=== PATIENT | female | born 1990 | race Caucasian/White ===

== ENCOUNTER → 2016-06-06 | Outpatient (CLI) | payer BC, OTHER ==
[2016-06-06 13:33] LABS: ALBUMIN 4.2 g/dL (3.4-5.0); ALBUMIN/GLOBULIN RATIO 1.1 (1.0-1.7); CALCIUM 8.9 mg/dL (8.5-10.1); CREATININE 0.9 mg/dL (0.6-1.0); GFR 75.1; MAGNESIUM 2.1 mg/dL (1.8-2.4); POTASSIUM 3.8 mmol/L (3.5-5.1); TOTAL BILIRUBIN 0.3 mg/dL (0.2-1.0); TOTAL PROTEIN 8.1 g/dL (6.4-8.2)
[2016-06-06 13:58] LABS: BASO % 0 % (0-3); EOS # 0.1 x10^3/uL (0.0-0.7); EOS % 1 % (0-3); HEMATOCRIT 42.6 % (36.0-47.0); HEMOGLOBIN 14.3 g/dL (12.0-15.5); LYMPH # 2.5 x10^3/uL (1.0-4.8); LYMPH % 29 % (24-48); MEAN CORPUSCULAR HEMOGLOBIN 28 pg (25-35); MEAN CORPUSCULAR HGB CONC 34 g/dL (31-37); MEAN CORPUSCULAR VOLUME 83 fL (79-100); MONO # 0.5 x10^3/uL (0.0-1.1); MONO % 6 % (0-9); NEUT # 5.7 x10^3uL (1.8-7.7); NEUT % 64 % (31-73); PLATELET COUNT 245 x10^3/uL (140-400); RED BLOOD COUNT 5.14 x10^6/uL (3.50-5.40); RED CELL DISTRIBUTION WIDTH 13.1 % (11.5-14.5); WHITE BLOOD COUNT 8.9 x10^3/uL (4.0-11.0)
== END | disposition home or self-care (01) ==
LOC: LAB 12:55
PROVIDERS: ATTEND Family Medicine
DX: J40 Bronchitis, not specified as acute or chronic (principal); E04.8 Other specified nontoxic goiter
CPT/HCPCS: 36415; 80053; 83735; 84443; 85027

== ENCOUNTER → 2016-07-02 | Outpatient (CLI) | payer OTHER ==
--- NOTE | 2016-07-02 14:59 | RAD ---
Indication enlarged thyroid. Grayscale imaging targeted to the thyroid was performed. The right lobe of the thyroid measures 4.4 x 1.5 x 1.8 cm and appears normal. No mass is seen. The isthmus appears normal. The left lobe of the thyroid also appears normal and measures approximately 4.6 x 1.3 x 1.5 cm. IMPRESSION: Normal study
== END | disposition home or self-care (01) ==
LOC: US 13:34
PROVIDERS: ATTEND Family Medicine
DX: E04.9 Nontoxic goiter, unspecified (principal)
CPT/HCPCS: 76536

== ENCOUNTER → 2016-09-10 | Outpatient (CLI) | payer OTHER ==
--- NOTE | 2016-09-10 11:16 | RAD ---
Right and left hand radiographs 09/10/2016 at 10:46 AM Indication: Joint pain for more than one week. Comparison: None available Technique: 3 views of the right and 3 views of the left hand are provided. Findings: Right hand: No acute fracture or dislocation. There is no soft tissue swelling. Joint spaces are maintained. Bone mineralization is within normal limits. No osseous erosions are identified. Left hand: There is no acute fracture or dislocation. There is no soft tissue swelling. Joint spaces are maintained. Bone mineralization is within normal limits. No osseous erosions are identified. Impression: 1. No acute fracture or dislocation involving the right hand. 2. No acute fracture or dislocation involving the left hand.
[2016-09-10 11:46] LABS: ALBUMIN 3.9 g/dL (3.4-5.0); CALCIUM 8.9 mg/dL (8.5-10.1); CREATININE 0.8 mg/dL (0.6-1.0); POTASSIUM 4.1 mmol/L (3.5-5.1); TOTAL BILIRUBIN 0.3 mg/dL (0.2-1.0); TOTAL PROTEIN 7.8 g/dL (6.4-8.2)
[2016-09-10 11:47] LABS: BASO % 0 % (0-3); EOS # 0.1 x10^3/uL (0.0-0.7); EOS % 1 % (0-3); HEMATOCRIT 41.1 % (36.0-47.0); LYMPH # 2.3 x10^3/uL (1.0-4.8); LYMPH % 31 % (24-48); MEAN CORPUSCULAR HEMOGLOBIN 28 pg (25-35); MEAN CORPUSCULAR HGB CONC 34 g/dL (31-37); MEAN CORPUSCULAR VOLUME 83 fL (79-100); MONO # 0.5 x10^3/uL (0.0-1.1); MONO % 7 % (0-9); NEUT # 4.6 x10^3uL (1.8-7.7); NEUT % 61 % (31-73); PLATELET COUNT 246 x10^3/uL (140-400); RED BLOOD COUNT 4.98 x10^6/uL (3.50-5.40); RED CELL DISTRIBUTION WIDTH 13.1 % (11.5-14.5); WHITE BLOOD COUNT 7.6 x10^3/uL (4.0-11.0)
[2016-09-10 12:14] LABS: BACTERIA,URINE FEW /HPF (0-FEW); BILIRUBIN,URINE NEG (NEG); CLARITY,URINE HAZY; COLOR,URINE YELLOW; GLUCOSE,URINE NEG (NEG); NITRITE,URINE NEG (NEG); SQUAMOUS EPITHELIAL CELL,UR FEW /LPF; UROBILINOGEN,URINE 0.2 mg/dL (0.2 mg/dL); WBC,URINE OCC /HPF (0-4)
[2016-09-10 12:56] LABS: SEDIMENTATION RATE 24 (0-25)
[2016-09-10 20:12] LABS: RHEUMATOID FACTOR <10.0 IU/mL (0.0-13.9)
== END | disposition home or self-care (01) ==
LOC: DXRAD 10:22
PROVIDERS: ATTEND Family Medicine
DX: M06.4 Inflammatory polyarthropathy (principal); M13.842 Other specified arthritis, left hand; M13.841 Other specified arthritis, right hand
CPT/HCPCS: 36415; 73130; 80053; 81001; 85027; 85651; 86431

== ENCOUNTER 2016-12-17 12:24 | Emergency (ER) | payer OTHER ==
[2016-12-17] MEDS ORDERED: ACET325T9 PO (12:37)
[2016-12-17] MEDS ORDERED: FLUT9.9S NS (12:55)
--- NOTE | 2016-12-17 12:55 | PHYS DOC ---
Past History Past Medical History: Migraines Past Surgical History: No Surgical History Adult General Chief Complaint Chief Complaint: HEADACHE HPI HPI Patient is a 26 year old F who presents with headache and sinus congestion. She states that she has had nasal congestion with drainage over the past 2-3 days. She feels these symptoms have been gradually worsening. Today she began having a posterior dull achy intermittent head pain that would change in location after minutes to the temporal regions or the frontal region. She states that she has had similar symptoms in the past with migraines that are preceded by an aura. She did have a similar aura today prior to headache however she noticed her headache came on more quickly today. Her symptoms are associated with mild nausea. Her symptoms worsen by light and improved by rest. Review of Systems Review of Systems Constitutional: Denies fever or chills [] Eyes: Denies change in visual acuity, redness, or eye pain [] HENT: Negative except history of present illness Respiratory: Denies cough or shortness of breath [] Cardiovascular: No additional information not addressed in HPI [] GI: Denies abdominal pain, vomiting, bloody stools or diarrhea [] : Denies dysuria or hematuria [] Musculoskeletal: Denies back pain or joint pain [] Integument: Denies rash or skin lesions [] Neurologic: Denies focal weakness or sensory changes [] Endocrine: Denies polyuria or polydipsia [] Family History Family History Noncontributory Current Medications Current Medications Medications reviewed Allergies Allergies Allergies Coded Allergies Type Severity Reaction Last Updated Verified No Known Drug Allergies 12/17/16 No Physical Exam Physical Exam Constitutional: Well developed, well nourished, no acute distress, non-toxic appearance. [] HENT: Normocephalic, atraumatic, bilateral nasal congestion associated with mild to moderate edema, right worse than left, with mild to moderate mucus Eyes: EOMI, conjunctiva normal, no discharge. [] Neck: Normal range of motion, no tenderness, supple, no stridor. [] Cardiovascular:Heart rate regular rhythm, no murmur [] Lungs & Thorax: Bilateral breath sounds clear to auscultation [] Abdomen: Bowel sounds normal, soft, no tenderness, no masses, no pulsatile masses. [] Skin: Warm, dry, no erythema, no rash. [] Extremities: No tenderness, no cyanosis, no clubbing, ROM intact, no edema. [] Neurologic: Alert and oriented X 3, normal motor function, normal sensory function, no focal deficits noted. [] Psychologic: Affect normal, judgement normal, mood normal. [] Current Patient Data Vital Signs Normal vital signs. Please refer to nursing documentation for specifics EKG EKG [] Radiology/Procedures Radiology/Procedures [] Course & Med Decision Making Course & Med Decision Making Pertinent Labs and Imaging studies reviewed. (See chart for details) Labs and imaging were declined Dragon Disclaimer Dragon Disclaimer This chart was dictated in whole or in part using Voice Recognition software in a busy, high-work load, and often noisy Emergency Department environment. It may contain unintended and wholly unrecognized errors or omissions. Departure Departure: Impression: Primary Impression: Migraine Additional Impression: URI (upper respiratory infection) Disposition: HOME, SELF-CARE Condition: STABLE Referrals: PCP,NO (PCP) Patient Instructions: Upper Respiratory Infection, Adult Additional Instructions: Jose was seen in the ED for a Headache and nasal congestion. No emergency medical condition was found on history or physical exam. Her symptoms are most consistent with an upper respiratory infection associated with a migraine. She was given medication in the emergency room to treat her migraine. She is advised to use nasal saline rinses regularly and was given a prescription for Flonase. She is advised follow-up with her primary care doctor the next 3-5 days for further management. Scripts Fluticasone Propionate (Flonase Allergy Relief) 9.9 Ml [place].susp 1 SPRAYS NS BID for 7 Days, BOTTLE Prov: BRISEIDA DENT MD 12/17/16 Problem Qualifiers Primary Impression: Migraine Migraine type: unspecified Status migrainosus presence: without status migrainosus Intractability: not intractable Qualified Codes: G43.909 - Migraine, unspecified, not intractable, without status migrainosus Additional Impression: URI (upper respiratory infection) URI type: unspecified viral URI Qualified Codes: J06.9 - Acute upper respiratory infection, unspecified; B97.89 - Other viral agents as the cause of diseases classified elsewhere BRISEIDA DENT MD Dec 17, 2016 12:55
[2016-12-17] MEDS ORDERED: PROCHLORPERAZINE 10 MG/2 ML VIAL. IM ONE (13:00)
[2016-12-17] MEDS ORDERED: KETOROLAC 60 MG/2 ML VIAL. IM ONE (13:00)
[2016-12-17 13:14] VITALS: BP 120/67
== END 2016-12-17 13:14 | disposition home or self-care (01) ==
LOC: ER 12:24
DX: G43.909 Migraine, unspecified, not intractable, without status migrainosus (principal); J06.9 Acute upper respiratory infection, unspecified
CPT/HCPCS: 96372; 99284; J0780; J1885

== ENCOUNTER → 2017-03-01 | Outpatient (CLI) | payer OTHER ==
[~2017-03-01] MED LIST: ACET325T9 PO; FLUT9.9S NS
[2017-03-01 10:41] LABS: BACTERIA,URINE 0 /HPF (0-FEW); BILIRUBIN,URINE NEG (NEG); CLARITY,URINE CLEAR; COLOR,URINE YELLOW; GLUCOSE,URINE NEG (NEG); NITRITE,URINE NEG (NEG); RBC,URINE 0 /HPF (0-2); SQUAMOUS EPITHELIAL CELL,UR OCC /LPF; UROBILINOGEN,URINE 0.2 mg/dL (0.2 mg/dL); WBC,URINE RARE /HPF (0-4)
== END | disposition home or self-care (01) ==
LOC: LAB 10:10
PROVIDERS: ATTEND Family Medicine
DX: N39.0 Urinary tract infection, site not specified (principal); R30.0 Dysuria
CPT/HCPCS: 81001

== ENCOUNTER 2017-04-30 07:05 | Emergency (ER) | payer OTHER ==
[~2017-04-30 07:05] MED LIST changes: -IOHEXOL 240 MG/ML 50ML VIAL. PO ONE; -IOHEXOL 300 MG/ML 75 ML VIAL. IV ONE; -ONDA4TAB10 SL; -RANI150T6 PO
[2017-04-30] MEDS: IV NORMAL SALINE 1,000ML 1,000 ML IV SCH (07:45)
[2017-04-30] MEDS: 0.9 % SODIUM CHLORIDE 10 ML DISP.SYRIN. IV PRN (07:45)
[2017-04-30] MEDS: ONDANSETRON PF 4 MG/2 ML VIAL. IV ONE (07:46)
--- NOTE | 2017-04-30 07:49 | PHYS DOC ---
Past History Past Medical History: No Pertinent History, Migraines Past Surgical History: No Surgical History Alcohol Use: Occasionally Drug Use: None Adult General Chief Complaint Chief Complaint: ABDOMINAL PAIN, nausea vomiting diarrhea [facility] 27-year-old female patient complaining of epigastric pain as intermittent pain for several months with radiation to her back and seen by her primary care physician and was told she is getting hernia. Patient complaining of increasing abdominal pain since this morning with 3 episodes of vomiting and 2 episodes of diarrhea. Patient states the pain is sharp and radiated to her back and rated her pain 8/10. Patient complaining of chills after episodes of vomiting. Patient denies urinary symptoms, , vaginal bleeding or discharge, urinary symptom. Patient states she had unremarkable gallbladder ultrasound 2.5 years ago and negative home test yesterday. Review of Systems Review of Systems Constitutional: Denies fever or chills [] Eyes: Denies change in visual acuity, redness, or eye pain [] HENT: Denies nasal congestion or sore throat [] Respiratory: Denies cough or shortness of breath [] Cardiovascular: No additional information not addressed in HPI [] GI: Denies abdominal pain, nausea, vomiting, bloody stools or diarrhea [] : Denies dysuria or hematuria [] Musculoskeletal: Denies back pain or joint pain [] Integument: Denies rash or skin lesions [] Neurologic: Denies headache, focal weakness or sensory changes [] Endocrine: Denies polyuria or polydipsia [] All other systems were reviewed and found to be within normal limits, except as documented in this note. Current Medications Current Medications Current Medications Medications (Trade) Dose Ordered Sig/[facility] Start Time Stop Time Status Last Admin Dose Admin Ondansetron HCl (Zofran) 4 mg 1X ONCE 04/30/17 07:45 04/30/17 07:46 Sodium Chloride (Normal Saline Flush) 10 ml QSHIFT PRN 04/30/17 07:30 Allergies Allergies Allergies Coded Allergies Type Severity Reaction Last Updated Verified No Known Drug Allergies 12/17/16 No Physical Exam Physical Exam Constitutional: Well developed, well nourished, mild normal, oropharynx moist, no oral exudates, nose normal. [] Eyes: PERRLA, EOMI, conjunctiva normal, no discharge. [] Neck: Normal range of motion, no tenderness, supple, no stridor. [] Cardiovascular:Heart rate regular rhythm, no murmur [] Lungs & Thorax: Bilateral breath sounds clear to auscultation [] Abdomen: Bowel sounds normal, soft, no tenderness, no masses, no pulsatile masses, epigastric guarding. [] Skin: Warm, dry, no erythema, no rash. [] Back: No tenderness, no CVA tenderness. [] Extremities: No tenderness, no cyanosis, no clubbing, ROM intact, no edema. [] Neurologic: Alert and oriented X 3, normal motor function, normal sensory function, no focal deficits noted. [] Psychologic: Affect normal, judgement normal, mood normal. [] Current Patient Data Vital Signs Vital Signs Date Time Temp Pulse Resp B/P (MAP) Pulse Ox O2 Delivery O2 Flow Rate FiO2 04/30/17 07:05 97.7 80 18 98 Room Air EKG EKG [] Radiology/Procedures Radiology/Procedures [] [address] [address] IMAGING REPORT Signed PATIENT: MALORIE TALBOT ACCOUNT: [id number] : 1990 LOCATION: ER AGE: 27 SEX: F EXAM STATUS: REG ER ORD. PHYSICIAN: YISEL PACHECO MD REASON: epigastric pain PROCEDURE: ABDOMEN LTD Right upper quadrant abdominal ultrasound, 04/30/2017: History: Abdominal pain and bloating The gallbladder is within normal limits in size. There is no sonographic evidence of cholelithiasis. The gallbladder perez are not thickened. The common hepatic duct is of normal caliber. There is no evidence of a hepatic mass. The visualized portions of the right kidney are unremarkable. The pancreas was obscured by overlying bowel. IMPRESSION: No significant gallbladder abnormality is detected. DICTATED AND SIGNED BY: ALMA BRAGA MD DATE: 04/30/17 0816 CC: JAYY STEVENSON DO; YISEL PACHECO MD ~ Course & Med Decision Making Course & Med Decision Making Pertinent Labs and Imaging studies reviewed. (See chart for details) Evaluation of patient in ER showed 27-year-old female patient with chronic epigastric pain and increasing pain today with nausea and vomiting and diarrhea. Patient had epigastric guarding without positive Valdez sign. Patient had marked leukocytosis and dehydration and felt better with IV fluid and Zofran and Toradol. Patient tolerated oral intake. Ultrasound of gallbladder did not show acute finding. Plan to discharge patient home with diagnosis of acute gastroenteritis. Patient instructed to follow-up with her primary care physician regarding chronic abdominal pain. [] Dragon Disclaimer Dragon Disclaimer This electronic medical record was generated, in whole or in part, using a voice recognition dictation system. Departure Departure: Impression: Primary Impression: Acute gastroenteritis Additional Impression: Dehydration Disposition: HOME, SELF-CARE (At 0832) Condition: IMPROVED Referrals: JAYY STEVENSON DO (PCP) Patient Instructions: Diet for Gastroesophageal Reflux Disease, Adult, Viral Gastroenteritis Additional Instructions: Drink plenty of liquids Follow-up with your primary care physician in 3-5 days Return to ER if not getting better Scripts Ranitidine Hcl (ZANTAC) 150 Mg Tablet 1 TAB PO BID, #30 TAB 3 Refills Prov: YISEL PACHECO MD 04/30/17 Ondansetron (ZOFRAN ODT) 4 Mg Tab.rapdis 1 TAB SL Q8HRS, #15 TAB Prov: YISEL PACHECO MD 04/30/17 Problem Qualifiers YISEL PACHECO MD Apr 30, 2017 07:49
[2017-04-30 07:58] LABS: BASO # 0.1 x10^3/uL (0.0-0.2); BASO % 1 % (0-3); EOS # 0.1 x10^3/uL (0.0-0.7); EOS % 1 % (0-3); HEMATOCRIT 44.1 % (36.0-47.0); HEMOGLOBIN 15.1 g/dL (12.0-15.5); LYMPH # 2.2 x10^3/uL (1.0-4.8); LYMPH % 15 % (24-48); MEAN CORPUSCULAR HEMOGLOBIN 29 pg (25-35); MEAN CORPUSCULAR HGB CONC 34 g/dL (31-37); MEAN CORPUSCULAR VOLUME 84 fL (79-100); MONO % 7 % (0-9); NEUT # 11.1 x10^3uL (1.8-7.7); NEUT % 77 % (31-73); PLATELET COUNT 269 x10^3/uL (140-400); RED BLOOD COUNT 5.27 x10^6/uL (3.50-5.40); RED CELL DISTRIBUTION WIDTH 13.1 % (11.5-14.5); WHITE BLOOD COUNT 14.5 x10^3/uL (4.0-11.0)
[2017-04-30] MEDS: KETOROLAC 30 MG/ML VIAL. IV ONE (08:03)
[2017-04-30 08:09] LABS: BACTERIA,URINE FEW /HPF (0-FEW); BILIRUBIN,URINE NEG (NEG); CLARITY,URINE CLEAR; COLOR,URINE YELLOW; GLUCOSE,URINE NEG (NEG); NITRITE,URINE NEG (NEG); RBC,URINE OCC /HPF (0-2); SQUAMOUS EPITHELIAL CELL,UR OCC /LPF; UROBILINOGEN,URINE 0.2 mg/dL (0.2 mg/dL); WBC,URINE OCC /HPF (0-4)
[2017-04-30 08:12] LABS: CALCIUM 8.7 mg/dL (8.5-10.1); CREATININE 0.7 mg/dL (0.6-1.0); GFR 99.6; TOTAL BILIRUBIN 0.2 mg/dL (0.2-1.0); TOTAL PROTEIN 8.1 g/dL (6.4-8.2)
--- NOTE | 2017-04-30 08:19 | RAD ---
Right upper quadrant abdominal ultrasound, 04/30/2017: History: Abdominal pain and bloating The gallbladder is within normal limits in size. There is no sonographic evidence of cholelithiasis. The gallbladder perez are not thickened. The common hepatic duct is of normal caliber. There is no evidence of a hepatic mass. The visualized portions of the right kidney are unremarkable. The pancreas was obscured by overlying bowel. IMPRESSION: No significant gallbladder abnormality is detected.
[2017-04-30] MEDS ORDERED: RANI150T6 PO (08:36)
[2017-04-30] MEDS ORDERED: ONDA4TAB10 SL (08:36)
[2017-04-30 09:05] VITALS: BP 129/59
== END 2017-04-30 09:05 | disposition home or self-care (01) ==
LOC: ER 07:05
DX: K52.9 Noninfective gastroenteritis and colitis, unspecified (principal); E86.0 Dehydration; G43.909 Migraine, unspecified, not intractable, without status migrainosus
CPT/HCPCS: 36415; 76705; 80053; 81001; 81025; 83690; 85025; 96361; 96374; 96375; 99285; J1885; J2405; J7030

== ENCOUNTER → 2017-04-30 | Outpatient (CLI) | payer OTHER ==
[~2017-04-30] MED LIST changes: +IOHEXOL 240 MG/ML 50ML VIAL. PO ONE; +IOHEXOL 300 MG/ML 75 ML VIAL. IV ONE; +ONDA4TAB10 SL; +RANI150T6 PO
[2017-04-30 09:05] VITALS: BP 129/59
--- NOTE | 2017-04-30 17:49 | RAD ---
Indication: High WBC count, epigastric pain, right lower quadrant pain with nausea. TECHNIQUE: CT abdomen and pelvis with 75 mL of Omnipaque 300 with multiplanar reformats. Oral contrast was given. COMPARISON: None FINDINGS: Heart is normal in size. No pericardial or pleural effusion. Clear lung bases. Liver, spleen, gallbladder, pancreas, adrenals and kidneys are within normal limits. No retroperitoneal or pelvic adenopathy. Fluid-filled colon and distal small bowel loops noted. Normal appendix. Shotty right lower quadrant mesenteric lymph nodes noted, nonspecific. No free intraperitoneal air or pneumatosis intestinalis. Small omental fat-containing umbilical hernia. Bladder is decompressed limiting optimal evaluation. Uterus is anteverted. Bilateral ovaries are visualized. 2 cm low attenuating lesion in the left ovary most likely dominant follicle. No suspicious bony lesion. IMPRESSION: 1. Fluid-filled colon and distal small bowel loops, nonspecific. Correlate for diarrhea. No bowel obstruction. Normal appendix. 2. No abdominal or pelvic abscess. Electronically signed by: Denton Cox DO (04/30/2017 5:46 PM) [facility]
== END | disposition home or self-care (01) ==
LOC: CT 16:08
PROVIDERS: ATTEND Nurse Practitioner Family
DX: K42.9 Umbilical hernia without obstruction or gangrene (principal)
CPT/HCPCS: 74177; Q9966; Q9967

== ENCOUNTER 2017-07-05 17:18 | Emergency (ER) | payer OTHER ==
[~2017-07-05] VITALS: Ht 165.1 cm; Wt 90.7 kg
[~2017-07-05 17:18] MED LIST changes: +ONDA4TAB10 SL; +RANI150T21 PO
[2017-07-05] MEDS ORDERED: TRAM-48 PO (17:52)
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
[2017-07-05 18:00] VITALS: BP 130/83
[2017-07-05] MEDS ORDERED: silver sulfADIAZINE 1% CREAM 50GM JAR. TP ONE (18:00)
[2017-07-05] MEDS ORDERED: HYDROcodone/APAP 5/325MG 1 TAB TABLET PO ONE (18:00)
[2017-07-05] MEDS ORDERED: IBUPROFEN 400 MG TABLET. PO ONE (18:15)
== END 2017-07-05 18:08 | disposition home or self-care (01) ==
LOC: ER 17:18
DX: T23.231A Burn of second degree of multiple right fingers (nail), not including thumb, initial encounter (principal); G43.909 Migraine, unspecified, not intractable, without status migrainosus; X17.XXXA Contact with hot engines, machinery and tools, initial encounter; Y93.89 Activity, other specified; Y99.8 Other external cause status; Y92.89 Other specified places as the place of occurrence of the external cause
CPT/HCPCS: 16020; 99284-25

== ENCOUNTER 2017-09-22 14:50 | Emergency (ER) | payer OTHER ==
[~2017-09-22 14:50] MED LIST changes: +TRAM-48 PO
--- NOTE | 2017-09-22 15:33 | PHYS DOC ---
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 Patient denies fever and chills , constipation and diarrhea, urinary symptom and . Review of Systems Review of Systems Constitutional: Denies fever or chills [] Eyes: Denies change in visual acuity, redness, or eye pain [] HENT: Denies nasal congestion or sore throat [] Respiratory: Denies cough or shortness of breath [] Cardiovascular: No additional information not addressed in HPI [] GI: Reports abdominal pain, denies nausea, vomiting, bloody stools or diarrhea [ ] : Denies dysuria or hematuria [] Musculoskeletal: Denies back pain or joint pain [] Integument: Denies rash or skin lesions [] Neurologic: Denies headache, focal weakness or sensory changes [] Endocrine: Denies polyuria or polydipsia [] All other systems were reviewed and found to be within normal limits, except as documented in this note. Allergies Allergies Allergies Coded Allergies Type Severity Reaction Last Updated Verified No Known Drug Allergies 09/22/17 No Physical Exam Physical Exam Constitutional: Well developed, well nourished, mild distress, non-toxic appearance. [] HENT: Normocephalic, atraumatic] Eyes: PERRLA, EOMI, conjunctiva normal, no discharge. [] Neck: Normal range of motion, no tenderness, supple, no stridor. [] Cardiovascular:Heart rate regular rhythm, no murmur [] Lungs & Thorax: Bilateral breath sounds clear to auscultation [] Abdomen: Clean above umbilicus 5 cm surgical wound without sign of infection or discharge or tenderness, bowel sounds normal, soft, no tenderness, no masses , no pulsatile masses. [] Skin: Warm, dry, no erythema, no rash. [] Back: No tenderness, no CVA tenderness. [] Extremities: No tenderness, no cyanosis, no clubbing, ROM intact, no edema. [] Neurologic: Alert and oriented X 3, normal motor function, normal sensory function, no focal deficits noted. [] Psychologic: Affect normal, judgement normal, mood normal. [] EKG EKG [] Radiology/Procedures Radiology/Procedures [] Course & Med Decision Making Course & Med Decision Making Evaluation of patient in ER showed 27-year-old female patient with history of ventral hernia repair and pain in the area of surgery after starting her physical job 2 days ago. Patient had unremarkable physical exam with clean surgical wound. Abdominal binder was provided and she wore it. Patient instructed to avoid of heavy activity and lifting weight. She currently is in light duty at her job. Dragon Disclaimer Dragon Disclaimer This electronic medical record was generated, in whole or in part, using a voice recognition dictation system. Departure Departure: Impression: Primary Impression: Postoperative pain Disposition: 01 HOME, SELF-CARE (at 1549) Condition: IMPROVED Referrals: PCPTORY (PCP) Patient Instructions: 2,3 Diphosphoglycerate, Abdominal Pain Additional Instructions: Use provided abdominal binder Follow-up with your primary care physician in 3-5 days Return to ER if not getting better YISEL PACHECO MD Sep 22, 2017 15:33
[2017-09-22 15:55] VITALS: BP 127/75
== END 2017-09-22 15:55 | disposition home or self-care (01) ==
LOC: MERGE 14:50 → ER 14:50
DX: G89.18 Other acute postprocedural pain (principal); R10.9 Unspecified abdominal pain; G43.909 Migraine, unspecified, not intractable, without status migrainosus; Z98.890 Other specified postprocedural states
CPT/HCPCS: 99281